=== PATIENT | female | born 1990 | race Caucasian/White ===

== ENCOUNTER 2016-09-18 16:39 | Emergency (ER) | payer BC ==
--- NOTE | 2016-09-18 16:56 | UCPHY ---
H & P Time Seen by Provider: 09/18/16 16:50 Patient Type: New HPI/ROS: Chief complaint. Dizzy, short of breath HPI. 25-year-old female here with dizziness and shortness of breath. Her symptoms began a couple hours ago. She has had some upper respiratory symptoms for 1 day consisting of congestion and fatigue. She woke up at about 3:00 p.m. and went to work. She has not eaten all day. As she got to work she started feeling warm with dizziness on standing. She felt like she could pass out. She had black spots before her vision. vomited x1. Some tightness across her anterior chest. No cough or fever. No unusual leg pain or swelling. No similar symptoms previously. Takes control pills. ROS Constitutional. no fever/chills, no weakness Eyes. Black spots before eyes ENT. no sore throat, no nasal drainage Cardiovascular. Tightness across anterior chest Respiratory. Shortness of breath Abdominal. no abdominal pain, no nausea/vomiting, no diarrhea . no problems urinating MS. no calf pain/swelling, no neck/back pain, no joint pain Skin. no rash Lymph. no swollen glands Neuro. No headache. Dizziness on standing Past Medical/Surgical History: Healthy Social History: Nonsmoker, no alcohol, single Physical Exam: General Appearance: Alert well-developed female mild distress vital signs are stable Eyes: Pupils equal and round no pallor or injection. ENT, Mouth: Mucous membranes are moist. Respiratory: There are no retractions, lungs are clear to auscultation. Cardiovascular: Regular rate and rhythm. Gastrointestinal: Abdomen is soft and nontender, no masses, bowel sounds normal. Neurological: Awake and alert, sensory and motor exams grossly normal. Skin: Warm and dry, no rashes. Musculoskeletal: Neck is supple nontender. Extremities symmetrical, full range of motion. Psychiatric: Patient is oriented X 3, there is no agitation. Constitutional: Initial Vital Signs Temperature (C) 36.6 C 09/18/16 16:56 Heart Rate 78 09/18/16 16:56 Respiratory Rate 18 09/18/16 16:56 Blood Pressure 102/88 H 09/18/16 16:56 O2 Sat (%) 96 09/18/16 16:56 O2 Delivery Mode Room Air Allergies/Adverse Reactions: No Known Allergies Allergy (Unverified 09/18/16 16:55) Home Medications: Medication Instructions Recorded Bc Pills 09/18/16 Medical Decision Making - Diagnostics EKG Interpretation: EKG interpreted by me shows normal sinus rhythm with normal interval and axis. QRS is normal there is no significant ST elevation or depression. There is no arrhythmia. There is no S1 q.3h T3 findings. The rate is 70 Procedures: IV normal saline. Zofran and Ativan intravenously. 2 L of saline given ED Course/Re-evaluation: Re-evaluation at 6:00 p.m. patient is feeling better Patient and I discussed EKG, imaging, laboratory evaluation. We discussed treatment plan including importance of follow-up further evaluation as well as criteria for return. Patient has a physician in [place] she is encouraged to follow up with. Patient remained stable. Vital signs are stable. Differential Diagnosis: I have considered hypoglycemia, anxiety, pulmonary embolus, cardiac arrhythmia, electrolyte abnormality - Data Points Laboratory Results: Laboratory Results 09/18/16 17:30 09/18/16 17:30 09/18/16 17:30 WBC 7.32 10^3/uL (3.80-9.50) RBC 4.44 10^6/uL (4.18-5.33) Hgb 13.3 g/dL (12.6-16.3) Hct 40.4 % (38.0-47.0) MCV 91.0 fL (81.5-99.8) MCH 30.0 pg (27.9-34.1) MCHC 32.9 g/dL (32.4-36.7) RDW 13.0 % (11.5-15.2) Plt Count 257 10^3/uL (150-400) MPV 10.5 fL (8.7-11.7) Neut % (Auto) 72.4 % (39.3-74.2) Lymph % (Auto) 15.4 % (15.0-45.0) Cataño % (Auto) 9.7 % (4.5-13.0) Eos % (Auto) 1.8 % (0.6-7.6) Baso % (Auto) 0.4 % (0.3-1.7) Nucleat RBC Rel Count 0.0 % (0.0-0.2) Absolute Neuts (auto) 5.30 10^3/uL (1.70-6.50) Absolute Lymphs (auto) 1.13 10^3/uL (1.00-3.00) Absolute Monos (auto) 0.71 10^3/uL (0.30-0.80) Absolute Eos (auto) 0.13 10^3/uL (0.03-0.40) Absolute Basos (auto) 0.03 10^3/uL (0.02-0.10) Absolute Nucleated RBC 0.00 10^3/uL (0-0.01) Immature Gran % 0.3 % (0.0-1.1) Immature Gran # 0.02 10^3/uL (0.00-0.10) D-Dimer 0.38 ug/mLFEU (0.00-0.50) Sodium 143 mEq/L (134-144) Potassium 4.3 mEq/L (3.5-5.2) Chloride 107 mEq/L (97-110) Carbon Dioxide 25 mEq/l (22-31) Anion Gap 11 mEq/L (8-16) BUN 11 mg/dL (7-23) Creatinine 0.8 mg/dL (0.6-1.0) Estimated GFR > 60 Glucose 85 mg/dL (70-100) Calcium 9.3 mg/dL (8.5-10.4) Beta HCG, Qual NEGATIVE Medications Given: Discontinued Medications Sodium Chloride (Ns) 1,000 mls @ 0 mls/hr IV ONCE ONE PRN Reason: Wide Open Stop: 09/18/16 17:13 Last Admin: 09/18/16 18:29 Dose: 1,000 mls Lorazepam (Ativan Injection) 0.5 mg IVP EDNOW ONE Stop: 09/18/16 17:13 Last Admin: 09/18/16 18:29 Dose: 0.5 mg Ondansetron HCl (Zofran) 4 mg IVP EDNOW ONE Stop: 09/18/16 17:13 Last Admin: 09/18/16 18:30 Dose: 4 mg Departure - Departure Disposition: Home, Routine, Self-Care Clinical Impression: Pre-syncope Condition: Good Instructions: Near Syncope (ED) Additional Instructions: Drink plenty of fluids and stay hydrated. Regular meals. Get plenty of sleep. Return for worsening chest discomfort or trouble breathing. Follow up with your physician in [place] in the next 1-2 days for continuing symptoms. I will also give you the name of a local physician here in [place]errals: [place],. [Primary Care Provider] - As per Instructions Shruthi Mcghee, [Doctor of Osteopathy] - As per Instructions - PQRS PQRS Measurement: 134: Depression screening and followup, PRIME MD-PHQ2 (12 years and older) Over the last 2 weeks, how often have you been bothered by any of the following problems? 1. Feeling down, depressed, or hopeless? 2. Little interest or pleasure in doing things? Patient answered no to both 1 and 2 130: Documentation of medications. Reviewed all patient medications, doses, route and frequency. 226: Do you smoke? No.
[2016-09-18 17:01] VITALS: RESP 18; TEMP 98
[2016-09-18] MEDS ORDERED: LORazepam 2 MG/ML INJ IVP ONE (17:12)
[2016-09-18] MEDS ORDERED: NS 1,000 ML IV ONE ×2 (17:12)
[2016-09-18] MEDS ORDERED: ONDANSETRON 4 MG/2 ML VIAL IVP ONE (17:12)
[2016-09-18 17:43] LABS: % IMMATURE GRANULYOCYTES 0.3 % (0.0-1.1); ABSOLUTE IMMATURE GRANULOCYTES 0.02 10^3/uL (0.00-0.10); ADD DIFF? NO; ADD MORPH? NO; ADD SCAN? NO; ATYPICAL LYMPHOCYTE FLAG 30 (0-99); FRAGMENT RBC FLAG 0 (0-99); HEMATOCRIT 40.4 % (38.0-47.0); HEMOGLOBIN 13.3 g/dL (12.6-16.3); LEFT SHIFT FLG 0 (0-99); LIPEMIA HEMOLYSIS FLAG 80 (0-99); MEAN CELL HEMOGLOBIN CONCENTR. 32.9 g/dL (32.4-36.7); MEAN PLATELET VOLUME 10.5 fL (8.7-11.7); PLATELET CLUMPS FLAG 0 (0-99); PLATELET COUNT 257 10^3/uL (150-400); RED BLOOD CELL COUNT 4.44 10^6/uL (4.18-5.33)
--- NOTE | 2016-09-18 17:50 | CPEKG ---
Heart Rate: 70 RR Interval: 857 P-R Interval: 156 QRSD Interval: 100 QT Interval: 396 QTC Interval: 428 P [place]: 65 QRS [place]: 55 T Wave [place]: 17 EKG Severity - NORMAL ECG - EKG Impression: SINUS RHYTHM Electronically Signed By: Shin Oro 18-Sep-2016 18:28:12
[2016-09-18 18:00] LABS: ANION GAP 11 mEq/L (8-16); CALCIUM 9.3 mg/dL (8.5-10.4); CARBON DIOXIDE 25 mEq/l (22-31); CHLORIDE 107 mEq/L (97-110); CREATININE 0.8 mg/dL (0.6-1.0); GLOMERULAR FILTRATION RATE > 60; GLUCOSE 85 mg/dL (70-100); POTASSIUM 4.3 mEq/L (3.5-5.2); SODIUM 143 mEq/L (134-144)
--- NOTE | 2016-09-18 18:49 | DX ---
Chest, One View Portable 1840 hours History: Cough, dyspnea. Comparison: None. Findings: Cardiac silhouette is normal in size. No pneumonia, congestive heart failure, pleural effu ariane, or pneumothorax. Impression: 1. No definite pneumonia. 2. No pleural effusion.
[2016-09-18 19:06] VITALS: O2SAT 97
[2016-09-18 19:26] VITALS: PULSE 85
[2016-09-18 19:27] VITALS: BP 117/65
== END 2016-09-18 19:26 | disposition home or self-care (01) ==
LOC: CED 16:39
DX: R55 Syncope and collapse (principal); R42 Dizziness and giddiness; R06.02 Shortness of breath; R07.89 Other chest pain
CPT/HCPCS: 71010-PO; 80048-PO; 84703-PO; 85025-PO; 85378-PO; 93010-PO; 96361-PO; 96374-PO; 96375-PO; 99203-PO; G0463-PO; J2405

== ENCOUNTER 2018-07-07 10:38 | Emergency (ER) | payer BC ==
--- NOTE | 2018-07-07 11:01 | EDPHY ---
General Time Seen by Provider: 07/07/18 10:55 Narrative: CHIEF COMPLAINT: Chest pain HISTORY OF PRESENT ILLNESS: Patient presents by private vehicle with her significant other with complaints of chest pain. Chest pain started late last night when she is angry for bed. It is retrosternal. It is described as 7/10 at this time. It was 4/10 last night. It is constant duration. Worse with palpation, movement and inspiration. Minimal improvement rest. Some shortness of breath associated with. No cough. No headache. No neck pain. No fever. She does describe a recent upper respiratory infection type illness approximately 1 week ago. No recent travel, trauma or surgery. No history of venous thrombolic event. Implant on in place without oral contraceptive use. No my offices. No other associated complaints or modifying factors. REVIEW OF SYSTEMS: 10 systems were reviewed and negative with the exception of the elements mentioned in the history of present illness. PCP: [facility] SPECIALISTS: None PAST MEDICAL HISTORY: Orthopedic injuries, seasonal allergies PAST SURGICAL HISTORY: Right wrist ORIF SOCIAL HISTORY: Nonsmoker. Lives independently with her significant other. 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 Anxious Head: normocephalic, atraumatic Eyes: Pupils equal and round, no conjunctival pallor or injection ENT, Mouth: Mucous membranes moist Neck: Normal inspection, supple, non-tender Respiratory: Lungs are clear to auscultation Cardiovascular: Regular rate and rhythm. No murmur. Good signs of perfusion distally Gastrointestinal: Abdomen is soft and nontender Back: non-tender, no bony abnormalities Neurological: A&O, nonfocal, normal gait Skin: Warm and dry, no rash Extremities: Nontender, no pedal edema. No palpable cords or evidence of DVT in her extremities. Psychiatric: Mood and affect normal DIFFERENTIAL DIAGNOSES: Including but not limited to pleurisy, pericarditis, pneumonia, pneumonitis, ACS , PE, acid reflux MDM: 10:55 a.m. Chest pain that is reproducible with palpation and inspiration. No cough. No wheezing. Lungs are clear in all asher without any signs of acute illness. She has no evidence of DVT by examination or history. No previous venous thrombolic event. Her vital signs are within normal limits without any tachycardia. She is perc negative. I have ordered two view chest x-ray and IV Toradol. I will discuss with Dr. Desirae Neville. 11:40 a.m. Chest x-ray is unremarkable as read by radiologist. Troponin is normal. This is a sensitive troponin as it was taking greater than 12 hr after onset of pain. I have re-evaluated the patient after Toradol. She is feeling much better. She still has some pain but it is markedly improved. We discussed the negative chest x-ray troponin. We discuss the likelihood of inflammatory etiology of her pain. Discussed further anti-inflammatories for the next 7-10 days. We discussed ED precautions for any worsening pain, fever, shortness of breath, extremity erythema edema or pain. We discussed discharge home with follow-up with primary care physician and she is comfortable this. I have answered all her questions. We will provide a work note. Discharged home stable condition. EKG interpretation: Dr. Desirae Neville Sinus rhythm without ischemia. SUPERVISION: Patient was independently examined, but I discussed the case with my secondary supervising physician Dr. Neville CONSULTATION: None - History Smoking Status: Never smoked - Objective Vital Signs: Initial Vital Signs Temperature (C) 98.1 F 07/07/18 10:40 Heart Rate 75 07/07/18 10:40 Respiratory Rate 18 07/07/18 10:40 Blood Pressure 135/88 H 07/07/18 10:40 O2 Sat (%) 99 07/07/18 10:40 O2 Delivery Mode Room Air Allergies/Adverse Reactions: No Known Allergies Allergy (Unverified 09/18/16 16:55) Home Medications: Medication Instructions Recorded Bc Pills 09/18/16 Ketorolac Tromethamine [Toradol 1 tab PO Q8 PRN #9 tab 07/07/18 10mg tab] oxyCODONE HCL/ACETAMINOPHEN 1 each PO Q4-6PRN PRN #5 tablet 07/07/18 [Percocet 5-325 mg Tablet] Medications Given: Discontinued Medications Ketorolac Tromethamine (Toradol) 15 mg IVP EDNOW ONE Stop: 07/07/18 11:03 Last Admin: 07/07/18 11:18 Dose: 15 mg Point of Care Test Results: Chemistry 07/07/18 10:54 POC Troponin I 0.01 ng/mL ng/mL (0.00-0.08) Departure - Departure Disposition: Home, Routine, Self-Care Clinical Impression: Acute chest pain, Chest wall pain Condition: Good Instructions: Chest Pain (ED), Pleurisy (ED), Costochondritis (ED) Additional Instructions: 1. Toradol as prescribed as needed for the next 3 days and then stop. After this transition to ibuprofen 600 mg every 6-8 hours or Aleve 2 pills twice daily for total of 7-10 days. Do not combine these medications 2. Contact your primary care physician for outpatient follow-up 3. Return here for any worsening of pain, worsening shortness of breath, fever, swelling of the arms or legs, redness of the arms or legs Referrals: Genaro Lemus, [Medical Doctor] - As per Instructions Stand Alone Forms: Work Excuse Prescriptions: Ketorolac Tromethamine [Toradol 10mg tab] 1 tab PO Q8 PRN #9 tab PRN Reason: Chest Pain oxyCODONE HCL/ACETAMINOPHEN [Percocet 5-325 mg Tablet] 1 each PO Q4-6PRN PRN #5 tablet PRN Reason: Pain, Breakthrough
[2018-07-07] MEDS ORDERED: KETOROLAC 15 MG/1 ML SDV IVP ONE (11:02)
[2018-07-07 12:09] VITALS: BP 123/76
--- NOTE | 2018-07-07 12:10 | ASMTLACE ---
LACE Length of stay for Answers: Less than 1 day current admission Acuity / Level of Answers: No Care: Did the patient have an inpatient admission? # of Emergency department Answers: 1-2 visits in the last 6 months Score: 1 Date Signed: 07/07/2018 12:08 PM Electronically Signed By:Alec Murphy LCSW
--- NOTE | 2018-07-08 07:38 | CPEKG ---
Test Reason : OPEN Blood Pressure : / mmHG Vent. Rate : 071 BPM Atrial Rate : 072 BPM P-R Int : 153 ms QRS Dur : 103 ms QT Int : 399 ms P-R-T Axes : 062 020 011 degrees QTc Int : 434 ms Sinus rhythm Confirmed by Desirae Neville ([id number]) on 07/08/2018 7:38:25 AM Referred By: Confirmed By:Desirae Neville
== END 2018-07-07 12:09 | disposition home or self-care (01) ==
DX: R07.89 Other chest pain (principal); R06.02 Shortness of breath; Z79.3 Long term (current) use of hormonal contraceptives
CPT/HCPCS: 84484-PO; 96374; J1885

== ENCOUNTER 2018-07-15 20:24 | Emergency (ER) | payer BC ==
[2018-07-15] MEDS ORDERED: HYOSCYAMINE SULFATE 0.125 MG TAB PO ONE (21:00)
[2018-07-15] MEDS ORDERED: MAG HYDROX/AL HYDROX/SIMETH 30 ML UDCUP PO ONE (21:00)
[2018-07-15] MEDS ORDERED: LIDOCAINE 2% VISCOUS 15 ML UDCUP PO ONE (21:00)
--- NOTE | 2018-07-15 21:05 | EDPHY ---
General - Diagnostics EKG: I reviewed patient's EKG. See [employer] system for interpretation <Justino Romo Linnette - Last Filed: 07/15/18 21:32> - History Smoking Status: Never smoked <Rikki Franz - Last Filed: 07/15/18 22:18> Time Seen by Provider: 07/15/18 21:00 Narrative: CHIEF COMPLAINT: Chest pain HISTORY OF PRESENT ILLNESS: Patient presents by private vehicle with complaints of chest pain. Chest pain started 9 days ago while she was getting ready for bed. It is retrosternal. It has been constant duration. It is mild at rest. Moderate with exertion and palpation. It was previously worse with inspiration which has changed. She has no fever. No cough. No shortness of breath. I evaluated this patient for this on July 07 with EKG, laboratory studies, chest x-ray. She felt well at the time of discharge home with reproducible chest pain is symptomatic medications. She took Toradol several days and then transition to over-the- counter anti-inflammatories. She states that her pain is significantly better when she is not work but that she has severe pain when at work. No extremity erythema edema or pain. No other associated complaints or modifying factors. REVIEW OF SYSTEMS: 10 systems were reviewed and negative with the exception of the elements mentioned in the history of present illness. PCP: Located in [place] SPECIALISTS: None PAST MEDICAL HISTORY: Orthopedic injuries. Seasonal allergies PAST SURGICAL HISTORY: ORIF right wrist SOCIAL HISTORY: Denies tobacco use. Lives independently with her significant other. 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 No wheezing rhonchi or crackles Cardiovascular: Regular rate and rhythm. No murmur. Tenderness palpation on the sternum. Gastrointestinal: Abdomen is soft and nontender Back: non-tender, no bony abnormalities Neurological: A&O, nonfocal, normal gait Skin: Warm and dry, no rash. No petechiae or purpura Extremities: Nontender, no pedal edema Psychiatric: Mood and affect normal DIFFERENTIAL DIAGNOSES: Including but not limited to esophagitis, reflux, ACS, PE, costochondritis, pericarditis, pleurisy MDM: 9:00 p.m. Retrosternal chest pain that is reproducible with palpation and occasionally with a exertion. Her vital signs are within normal limits. She has no fever. No shortness of breath at this time. No cough. She is in no acute distress. She is perc negative. 9:15 p.m. Case discussed with Dr. Romo. We will proceed with re-evaluation for cardiac abnormalities. Patient is agreeable this plan. 10:15 p.m. Troponin, D-dimer and remainder laboratory studies are within normal limits. EKG is unremarkable. I re-evaluated the patient. She has declined morphine and states that she would like to go home. We discussed the likelihood of pleurisy versus costochondritis, among other etiologies as this is a reproducible chest pain. We discussed continuation of her anti-inflammatories with addition of tramadol. We discussed follow up with primary care physician and consideration of cardiology follow-up. We discussed ED precautions for worsening pain, fever, difficulty breathing. She is comfortable this plan and asking to go home. EKG interpretation: Dr. Romo SUPERVISION: Patient was independently examined, but I discussed the case with my secondary supervising physician Dr. Romo CONSULTATION: None (Rikki Franz) - Diagnostics EKG Interpretation: EKG: Complete interpretation has been separately recorded in the [employer] archive. Summary impression: NSR, 67. (Justino Romo) - Objective Vital Signs: Initial Vital Signs Temperature (C) 98.1 F 07/15/18 20:27 Heart Rate 98 07/15/18 20:27 Respiratory Rate 18 07/15/18 20:27 Blood Pressure 107/85 H 07/15/18 20:27 O2 Sat (%) 98 07/15/18 20:27 O2 Delivery Mode Room Air Allergies/Adverse Reactions: No Known Allergies Allergy (Unverified 09/18/16 16:55) Home Medications: Medication Instructions Recorded Cetirizine [ZyrTEC 10 mg (*)] 10 mg PO DAILY 07/15/18 traMADol [Ultram 50 mg (*)] 50 mg PO Q4 PRN #12 tab 07/15/18 Laboratory Results: Laboratory Results 07/15/18 21:20 07/15/18 21:20 07/15/18 07/15/18 07/15/18 21:20 21:20 21:20 WBC RBC Hgb Hct MCV MCH MCHC RDW Plt Count MPV Neut % (Auto) Lymph % (Auto) Person % (Auto) Eos % (Auto) Baso % (Auto) Nucleat RBC Rel Count Absolute Neuts (auto) Absolute Lymphs (auto) Absolute Monos (auto) Absolute Eos (auto) Absolute Basos (auto) Absolute Nucleated RBC Immature Gran % Immature Gran # D-Dimer 0.29 ug/mLFEU ug/mLFEU (0.00-0.50) Sodium 140 mEq/L mEq/L (135-145) Potassium 4.0 mEq/L mEq/L (3.3-5.0) Chloride 106 mEq/L mEq/L (97-110) Carbon Dioxide 25 mEq/l mEq/l (22-31) Anion Gap 9 mEq/L mEq/L (6-14) BUN 19 mg/dL mg/dL (7-23) Creatinine 0.7 mg/dL mg/dL (0.6-1.0) Estimated GFR > 60 Glucose 99 mg/dL mg/dL (70-100) Calcium 9.7 mg/dL mg/dL (8.5-10.4) POC Troponin I 0.00 ng/mL ng/mL (0.00-0.08) Lipase 55 IU/L IU/L (23-300) 07/15/18 21:20 WBC 9.24 10^3/uL 10^3/uL (3.80-9.50) RBC 4.88 10^6/uL 10^6/uL (4.18-5.33) Hgb 14.2 g/dL g/dL (12.6-16.3) Hct 43.5 % % (38.0-47.0) MCV 89.1 fL fL (81.5-99.8) MCH 29.1 pg pg (27.9-34.1) MCHC 32.6 g/dL g/dL (32.4-36.7) RDW 12.5 % % (11.5-15.2) Plt Count 297 10^3/uL 10^3/uL (150-400) MPV 10.8 fL fL (8.7-11.7) Neut % (Auto) 56.5 % % (39.3-74.2) Lymph % (Auto) 30.3 % % (15.0-45.0) Person % (Auto) 8.5 % % (4.5-13.0) Eos % (Auto) 4.0 % % (0.6-7.6) Baso % (Auto) 0.5 % % (0.3-1.7) Nucleat RBC Rel Count 0.0 % % (0.0-0.2) Absolute Neuts (auto) 5.21 10^3/uL 10^3/uL (1.70-6.50) Absolute Lymphs (auto) 2.80 10^3/uL 10^3/uL (1.00-3.00) Absolute Monos (auto) 0.79 10^3/uL 10^3/uL (0.30-0.80) Absolute Eos (auto) 0.37 10^3/uL 10^3/uL (0.03-0.40) Absolute Basos (auto) 0.05 10^3/uL 10^3/uL (0.02-0.10) Absolute Nucleated RBC 0.00 10^3/uL 10^3/uL (0-0.01) Immature Gran % 0.2 % % (0.0-1.1) Immature Gran # 0.02 10^3/uL 10^3/uL (0.00-0.10) D-Dimer Sodium Potassium Chloride Carbon Dioxide Anion Gap BUN Creatinine Estimated GFR Glucose Calcium POC Troponin I Lipase Medications Given: Discontinued Medications Al Hydroxide/Mg Hydroxide (Maalox Susp) 30 ml PO ONCE ONE Stop: 07/15/18 21:01 Last Admin: 07/15/18 21:02 Dose: 30 ml Hyoscyamine Sulfate (Levsin, Hyomax-Sl) 0.25 mg PO ONCE ONE Stop: 07/15/18 21:01 Last Admin: 07/15/18 21:02 Dose: 0.25 mg Lidocaine (Lidocaine 2% Viscous) 15 ml PO ONCE ONE Stop: 07/15/18 21:01 Last Admin: 07/15/18 21:02 Dose: 15 ml Point of Care Test Results: Chemistry 07/15/18 21:20 POC Troponin I 0.00 ng/mL ng/mL (0.00-0.08) Departure <Justino Romo - Last Filed: 07/15/18 21:32> <Rikki Franz - Last Filed: 07/15/18 22:18> - Departure Disposition: Home, Routine, Self-Care Clinical Impression: Chest wall pain Condition: Good Instructions: Pleurisy (ED), Costochondritis (ED) Additional Instructions: 1. Continue Aleve 2 pills by mouth twice daily 2. Tramadol as prescribed as needed for pain 3. Contact the on-call primary care physician as provided 4. Contact on-call fruit or nut farmer for outpatient care as needed 5. ED precautions as discussed Referrals: Freida Queen MD [Medical Doctor] - As per Instructions Daryl Young MD [Medical Doctor] - As per Instructions Prescriptions: traMADol [Ultram 50 mg (*)] 50 mg PO Q4 PRN #12 tab PRN Reason: Pain, Mild
[2018-07-15 21:35] LABS: PLATELET COUNT 297 10^3/uL (150-400)
[2018-07-15] MEDS ORDERED: traMADol 50 MG TAB PO ONE (22:15)
[2018-07-15 22:24] VITALS: BP 117/76
== END 2018-07-15 22:24 | disposition home or self-care (01) ==
DX: R07.89 Other chest pain (principal)
CPT/HCPCS: 84484-PO; J2270